=== PATIENT | female | born 1990 | race Asian ===

== ENCOUNTER 2019-01-17 11:52 | Day surgery (SDC) | payer OTHER ==
[~2019-01-17] VITALS: Ht 157.5 cm; Wt 43.1 kg
[2019-01-17 12:12] VITALS: Ht 157.5 cm; Wt 43.1 kg
[2019-01-17 16:30] VITALS: BP 107/66
== END 2019-01-17 16:20 | disposition home or self-care (01) ==
LOC: ED 11:52 → DS 13:45
DX: O02.1 Missed abortion (principal); Z88.8 Allergy status to other drugs, medicaments and biological substances
CPT/HCPCS: J0690; J2250; J2704; J3010; J7120